=== PATIENT | male | born 1965 | race Two or more races ===

== ENCOUNTER 2024-05-02 09:50 | Emergency (ER) | payer OTHER ==
[~2024-05-02] VITALS: Ht 170.2 cm; Wt 81.6 kg
[2024-05-02] MEDS ORDERED: PROTONIX40 M1 PO (10:05)
[2024-05-02] MEDS ORDERED: FAMOtidine 200mg/20ml VIAL ONE (10:36)
[2024-05-02] MEDS ORDERED: ONDANSETRON HCL 2 MG/ML VIAL ONE (10:36)
[2024-05-02] MEDS ORDERED: HYOSCYAMINE SULFATE 0.125 MG TAB.SUBL ONE (10:36)
[2024-05-02] MEDS ORDERED: 0.9 % SODIUM CHLORIDE 1,000 ML IV ONE (10:45)
[2024-05-02] MEDS ORDERED: FAMOtidine 10 MG/ML (4ML VIAL) IV PUSH ONE (10:45)
[2024-05-02] MEDS ORDERED: ONDANSETRON 4 MG TAB.RAPDIS PO ONE (10:45)
[2024-05-02] MEDS ORDERED: SUCRALFATE 1 G TABLET PO ONE (10:45)
[2024-05-02] MEDS ORDERED: HYOSCYAMINE SULFATE 0.125 MG TAB.SUBL SL ONE (10:45)
[2024-05-02 10:57] LABS: HEMOGLOBIN 13.6 g/dL (13-16.00); MEAN CORPUSCULAR HEMOGLOBIN 28.2 pg (27.00-32.0); PLATELET COUNT 323 K/uL (150-450); RED BLOOD COUNT 4.82 M/uL (4.00-6.00); RED CELL DISTRIBUTION WIDTH 14.1 % (11.5-14.5)
[2024-05-02 11:13] LABS: ALBUMIN 3.6 gm/dL (3.4-5.0); BILIRUBIN TOTAL 0.29 mg/dL (0.3-1.2); CALCIUM 8.9 mg/dL (8.5-10.1); CREATININE SERUM 1.3 mg/dL (0.70-1.30); GFR 56.7; GLOBULINA 3.6 G/DL (2.4-3.5); POTASSIUM 3.73 mEq/L (3.5-5.1); TOTAL PROTEIN 7.2 gm/dL (6.4-8.2)
== END 2024-05-02 13:36 | disposition home or self-care (01) ==
LOC: ER 09:52
PROVIDERS: General Practice
DX: A05.9 Bacterial foodborne intoxication, unspecified (principal)